=== PATIENT | male | born 1955 | race Hispanic/Latino ===

== ENCOUNTER 2016-03-19 18:47 | Emergency (ER) | payer MEDICARE ==
[2016-03-19] MEDS ORDERED: TYLENOL ONE (19:57)
[2016-03-19] MEDS ORDERED: TYLENOL PO ONE (20:16)
--- NOTE | 2016-03-19 21:35 | Emergency Department Report ---
ED Fall HPI - General Chief Complaint: Fall Stated Complaint: LT SIDE PAIN/FALL Time Seen by Provider: 03/19/16 20:44 Source: patient Mode of arrival: Ambulatory Limitations: No Limitations - History of Present Illness Initial Comments: Patient here reports that at approximately 6 PM today he slipped and fell from ground level. He's completing the patient to the left side of his head at 6 out of 10. He said full was accidental. Denies any loss of consciousness. Denies any dizziness or blurred vision. Denies any nausea or vomiting. He received Tylenol 650 mg upon presentation to the emergency room. Patient has multiple comorbidity to include cardiac stents and he is on Plavix. Denies any neck pain or stiffness. Denies any feeling of dizziness prior to falling. He denies any chest pain or shortness of breath. Denies any visual difficulties. 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 denies: neck pain, numbness, weakness, chest paint, shortness of breath, abdominal pain, hematuria, unable to walk, lightheaded, vertigo, confusion - Related Data Home Medications Medication Instructions Recorded Confirmed Last Taken Clopidogrel [Plavix] 75 mg PO QDAY 12/08/14 07/15/15 1 Day Ago diphenhydrAMINE [Benadryl CAP] 50 mg PO QHS PRN 03/03/15 07/15/15 1 Day Ago Aspirin [Aspirin BABY CHEW TAB] 81 mg PO QDAY 07/15/15 07/15/15 1 Day Ago Previous Rx's Medication Instructions Recorded Last Taken Type Buprenorphine/Naloxone [Suboxone 2 1 each SL QDAY #30 film 12/21/14 1 Day Ago Rx mg-0.5 mg SL Film] traMADol [Ultram] 50 mg PO Q6HR PRN #10 tablet 07/15/15 Unknown Rx Allergies Allergy/AdvReac Type Severity Reaction Status Date / Time codeine Allergy Shortness Verified 03/31/15 12:53 of Breath morphine Allergy Shortness Verified 03/31/15 12:53 of Breath Iodinated Contrast Media - AdvReac Itching Verified 03/31/15 12:53 IV Dye ED Review of Systems ROS: Stated complaint: LT SIDE PAIN/FALL Other details as noted in HPI Comment: All other systems reviewed and negative Constitutional: denies: chills, fever, weakness ENT: denies: congestion Respiratory: no symptoms reported Cardiovascular: denies: chest pain, palpitations, edema, syncope Gastrointestinal: denies: abdominal pain, nausea, vomiting Musculoskeletal: denies: back pain, arthralgia Skin: denies: rash Neurological: headache. denies: weakness, numbness, paresthesias, confusion, abnormal gait, vertigo ED Past Medical Hx - Past Medical History Previous Medical History?: Yes Hx Hypertension: Yes Hx Heart Attack/AMI: Yes Hx GERD: Yes Hx Kidney Stones: Yes Hx Psychiatric Treatment: Yes (DEPRESSION/ BIPOLAR, Anxiety, SI, HI,) Hx COPD: Yes Additional medical history: CAD, SVT, Hypothyroid,. ULCERS - Surgical History Past Surgical History?: Yes Hx Coronary Stent: Yes (x3) Hx Open Heart Surgery: Yes (CABG) - Family History Family history: hypertension - Social History Smoking Status: Never Smoker Substance Use Type: None - Medications Home Medications: Home Medications Medication Instructions Recorded Confirmed Last Taken Type Clopidogrel [Plavix] 75 mg PO QDAY 12/08/14 07/15/15 1 Day Ago History Buprenorphine/Naloxone [Suboxone 2 1 each SL QDAY #30 film 12/21/14 07/15/15 1 Day Ago Rx mg-0.5 mg SL Film] diphenhydrAMINE [Benadryl CAP] 50 mg PO QHS PRN 03/03/15 07/15/15 1 Day Ago History Aspirin [Aspirin BABY CHEW TAB] 81 mg PO QDAY 07/15/15 07/15/15 1 Day Ago History traMADol [Ultram] 50 mg PO Q6HR PRN #10 tablet 07/15/15 Unknown Rx ED Physical Exam - General Limitations: No Limitations General appearance: alert, in no apparent distress - Head Head exam: Present: atraumatic, normocephalic, normal inspection - Expanded Head Exam Expanded Head exam: Present: abrasion (scalp abrasion). Absent: laceration, contusion, hematoma, racoon eyes, bullock's sign, general tenderness, tenderness of temporal artery, CSF rhinorrhea, CSF otorrhea - Eye Eye exam: Present: normal appearance, PERRL, EOMI Pupils: Present: normal accommodation - ENT ENT exam: Present: normal exam, normal orophraynx, mucous membranes moist, TM's normal bilaterally, normal external ear exam - Neck Neck exam: Present: normal inspection, full ROM. Absent: tenderness, meningismus, lymphadenopathy, thyromegaly - Expanded Neck Exam Expanded Neck exam: Absent: tenderness, midline deformity, anterior neck swelling, tracheal deviation - Respiratory Respiratory exam: Present: normal lung sounds bilaterally. Absent: respiratory distress, chest wall tenderness - Cardiovascular Cardiovascular Exam: Present: normal rhythm, tachycardia, normal heart sounds - GI/Abdominal GI/Abdominal exam: Present: soft, normal bowel sounds. Absent: distended, tenderness, guarding, rebound, rigid - Extremities Exam Extremities exam: Present: normal inspection, full ROM, normal capillary refill. Absent: tenderness, pedal edema, joint swelling, calf tenderness - Back Exam Back exam: Present: normal inspection, full ROM. Absent: tenderness, CVA tenderness (R), CVA tenderness (L), muscle spasm, paraspinal tenderness, vertebral tenderness, rash noted - Expanded Neurological Exam Expanded Neurological exam: Absent: innattentive, memory loss-remote event, memory loss- recent event, ataxia, receptive aphasia, expressive aphasia, total aphasia, tremor, protecting the airway Patient oriented to: Present: person, place, time Speech: Present: fluid speech Cranial nerves: EOM's Intact: Normal, Gag Reflex: Normal, Nystagmus: Normal, Facial Sensation: Normal Cerebellar function: Romberg: Normal Upper motor neuron: Pronator Drift: Normal, Sensory Extinction: Normal Sensory exam: Upper Extremity Light Touch: Normal, Upper Extremity Temperature: Normal, UE 2 Point Discrimination: Normal, Lower Extremity Light Touch: Normal, Lower Extremity Temperature: Normal, LE 2 Point Discrimination: Normal Motor strength exam: RUE: 5, LUE: 5, RLE: 5, LLE: 5 DTR: bicep (R): 2+, bicep (L): 2+, tricep (R): 2+, tricep (L): 2+, knee (R): 2+ , knee (L): 2+, ankle (R): 2+, ankle (L): 2+ Best Eye Response (Alida): (4) open spontaneously Best Motor Response (Alida): (6) obeys commands Best Verbal Response (Hyndman): (5) oriented Hyndman Total: 15 - Psychiatric Psychiatric exam: Present: normal affect, normal mood - Skin Skin exam: Present: warm, dry, intact, normal color, abrasion (scalp) ED Course Vital Signs 03/19/16 03/19/16 20:01 22:10 Temperature 98.7 F 98.4 F Pulse Rate 116 H 88 Respiratory 20 20 Rate Blood Pressure 155/103 Blood Pressure 126/80 [Left] O2 Sat by Pulse 97 99 Oximetry - Reevaluation(s) Reevaluation #1: 03/19/16 23:51 Patient received Tylenol 650 mg emergency room for pain and now his pain has gone. ED Medical Decision Making - Lab Data Result diagrams: 03/19/16 21:47 Lab Results 03/19/16 03/19/16 Range/Units 21:47 21:47 WBC 8.9 (4.5-11.0) K/mm3 RBC 5.19 H (3.65-5.03) M/mm3 Hgb 15.2 (11.8-15.2) gm/dl Hct 45.2 (35.5-45.6) % MCV 87 (84-94) fl MCH 29 (28-32) pg MCHC 34 (32-34) % RDW 14.0 (13.2-15.2) % Plt Count 272 (140-440) K/mm3 Lymph % (Auto) 15.9 (13.4-35.0) % [place] % (Auto) 9.4 H (0.0-7.3) % Eos % (Auto) 1.0 (0.0-4.3) % Baso % (Auto) 1.3 (0.0-1.8) % Lymph # 1.4 (1.2-5.4) K/mm3 [place] # 0.8 (0.0-0.8) K/mm3 Eos # 0.1 (0.0-0.4) K/mm3 Baso # 0.1 (0.0-0.1) K/mm3 Seg Neutrophils % 72.4 H (40.0-70.0) % Seg Neutrophils # 6.5 (1.8-7.7) K/mm3 PT 13.1 (12.2-14.9) Sec. INR 1.00 (0.87-1.13) APTT 30.0 (24.2-36.6) Sec. - EKG Data Rate: tachycardia (116) - EKG Data Interpretation: no acute changes - Radiology Data Radiology results: report reviewed CT scan of the brain without contrast reveals there is no CT evidence of intracranial hemorrhage or edema or shift or infarct or distinct acute finding on this noncontrast scan. Mild cerebral atrophy - Medical Decision Making ED course: Patient status post fall with head injury and complains of headache. Patient is neurologically intact. Decision was made to do CT scan because patient is on blood thinner. CT scan results revealed no acute findings. Lab results within normal limits. I discussed this with patient and he voiced understanding. Abrasion to scalp cleansed with normal saline and Neosporin ointment placed to side. Tetanus vaccine is up-to-date per patient. Patient discharged home with prescription for Tylenol and to follow-up with his primary care physician tomorrow. Critical care attestation.: If time is entered above; I have spent that time in minutes in the direct care of this critically ill patient, excluding procedure time. ED Disposition Clinical Impression: Minor head injury without loss of consciousness Qualifiers: Encounter type: initial encounter Qualified Code(s): S09.90XA - Unspecified injury of head, initial encounter Scalp abrasion Qualifiers: Encounter type: initial encounter Qualified Code(s): S00.01XA - Abrasion of scalp, initial encounter Post-traumatic headache, not intractable Qualifiers: Headache chronicity pattern: acute headache Qualified Code(s): G44.319 - Acute post-traumatic headache, not intractable Disposition: DISCHARGED TO HOME OR SELFCARE Is pt being admited?: No Does the pt Need Aspirin: No Condition: Stable Instructions: Minor Head Injury (ED), Acute Headache (ED), Abrasion (ED) Additional Instructions: Please refer to discharge instruction paperwork on minor head injury. Referrals: PRIMARY MD DONALD [Primary Care Provider] - 03/19/16 Forms: Work/School Release Form(ED)
[2016-03-19 22:24] LABS: Basophils % (Auto) 1.3 % (0.0-1.8); Hematocrit 45.2 % (35.5-45.6); Hemoglobin 15.2 gm/dl (11.8-15.2); Mean Corpuscular HGB Conc 34 % (32-34); Mean Corpuscular Hemoglobin 29 pg (28-32); Mean Corpuscular Volume 87 fl (84-94); Platelet Count 272 K/mm3 (140-440); Red Blood Count 5.19 M/mm3 (3.65-5.03); White Blood Count 8.9 K/mm3 (4.5-11.0)
--- NOTE | 2016-03-19 22:42 | Cat Scan Report ---
FINAL REPORT PROCEDURE: CT HEAD/BRAIN WO CON TECHNIQUE: Computerized tomography of the head was performed without contrast material. HISTORY: Head trauma. Head injury on blood thinner. COMPARISON: No prior studies are available for comparison. FINDINGS: Skull and scalp: Normal. Paranasal sinuses: Normal. Ventricles and subarachnoid spaces: There is mild cerebral atrophy. Cerebrum: No evidence of hemorrhage, acute infarction or mass . Cerebellum and brainstem: No evidence of hemorrhage, acute infarction or mass. Vasculature: Normal. Comments: Slightly prominent CSF space in the midline of the posterior fossa posteriorly is likely within the range of normal variation. IMPRESSION: 1. There is no CT evidence of intracranial hemorrhage or edema or shift or infarct or distinct acute finding on this noncontrast scan. 2. Mild cerebral atrophy.
[2016-03-19] MEDS ORDERED: TRIPLE ANTIBIOTIC TP ONE ×2 (23:36→23:38)
[2016-03-20 00:38] VITALS: BP 132/86
== END 2016-03-20 00:35 | disposition home or self-care (01) ==
LOC: ED 18:47
DX: S09.90XA Unspecified injury of head, initial encounter (principal); S00.01XA Abrasion of scalp, initial encounter; G44.319 Acute post-traumatic headache, not intractable; I10 Essential (primary) hypertension; I25.2 Old myocardial infarction; K21.9 Gastro-esophageal reflux disease without esophagitis; F31.9 Bipolar disorder, unspecified; J44.9 Chronic obstructive pulmonary disease, unspecified; I25.810 Atherosclerosis of coronary artery bypass graft(s) without angina pectoris; E03.9 Hypothyroidism, unspecified; W01.0XXA Fall on same level from slipping, tripping and stumbling without subsequent striking against object, initial encounter; Y93.9 Activity, unspecified; Y92.9 Unspecified place or not applicable; Y99.9 Unspecified external cause status
CPT/HCPCS: 36415; 70450; 85025; 85610; 85730; 93005; 93010; A6250

== ENCOUNTER 2016-06-11 09:18 | Emergency (ER) | payer MEDICARE ==
--- NOTE | 2016-06-11 10:23 | Emergency Department Report ---
Entered by CELINA DELEON, acting as scribe for SONIA KENNY NP. Chief Complaint: Animal Bite Stated Complaint: SNAKE BITE/LEFT THUMB Time Seen by Provider: 06/11/16 09:30 - HPI History of Present Illness: 60 y/o male presents with left hand pain after a snake bite that occurred 30 minutes ago. Pt notes the snake was 1 ft long and light in color. 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 1010 reassessed. no change in condition. - ROS Review of Systems: as noted in HPI. - Exam Vital Signs: Vital Signs 06/11/16 09:24 Temperature 99.4 F Pulse Rate 139 H Respiratory 22 Rate Blood Pressure 172/114 O2 Sat by Pulse 100 Oximetry Physical Exam: as noted in HPI. MSE screening note: Focused history and physical exam performed. Due to findings the following was ordered: ED Disposition for MSE Condition: Stable This documentation as recorded by the scribe,CELINA DELEON,accurately reflects the service I personally performed and the decisions made by me,SONIA KENNY NP.
[2016-06-11] MEDS ORDERED: NACL 0.9% 1000 ML 1,000 ML IV ONE (10:43)
--- NOTE | 2016-06-11 10:43 | Emergency Department Report ---
HPI - General Chief Complaint: Animal Bite Time Seen by Provider: 06/11/16 10:36 - HPI HPI: 60-year-old male who presents to the emergency department by EMS from [place], where he is being seen for suicidal ideations, with the complaint of a snake bite to the left thumb. The patient was leaning down to tie his shoes while outside this morning around 8:30 AM, about 2 hours ago, when he saw a small snake bite him on the base of the left thumb. There are too small puncture erwin and the patient has been having some pain to the thumb and says it has been "twisting." He says that the snake was about 9-10 inches in length and it was brown with some white spots. He has a past medical history of COPD, coronary artery disease with OR, hypertension, depression, bipolar disorder, coronary artery disease, SVT and some substance abuse history with pain pills. ED Past Medical Hx - Past Medical History Previous Medical History?: Yes Hx Hypertension: Yes Hx Heart Attack/AMI: Yes Hx GERD: Yes Hx Kidney Stones: Yes Hx Psychiatric Treatment: Yes (DEPRESSION/ BIPOLAR, Anxiety, SI, HI,) Hx COPD: Yes Additional medical history: CAD, SVT, Hypothyroid,. ULCERS - Surgical History Past Surgical History?: Yes Hx Coronary Stent: Yes (x3) Hx Open Heart Surgery: Yes (CABG) - Social History Smoking Status: Never Smoker Substance Use Type: Prescribed - Medications Home Medications: Home Medications Medication Instructions Recorded Confirmed Last Taken Type Clopidogrel [Plavix] 75 mg PO QDAY 12/08/14 06/11/16 06/11/16 06:00 History diphenhydrAMINE [Benadryl CAP] 50 mg PO QHS PRN 03/03/15 06/11/16 05/29/16 History Aspirin [Aspirin BABY CHEW TAB] 81 mg PO QDAY 07/15/15 06/11/16 06/11/16 06:00 History Amoxicillin/K Clav Tab [Augmentin 1 each PO Q12HR #14 tablet 06/11/16 Unknown Rx 500 MG TAB] Quetiapine Fumarate [SEROquel XR] 300 mg PO QHS 06/11/16 06/11/16 06/10/16 History ED Review of Systems ROS: Stated complaint: SNAKE BITE/LEFT THUMB Other details as noted in HPI Comment: All other systems reviewed and negative Constitutional: denies: chills, fever Eyes: denies: eye pain, eye discharge, vision change ENT: denies: ear pain, throat pain Respiratory: denies: cough, shortness of breath, wheezing Cardiovascular: denies: chest pain, palpitations Gastrointestinal: denies: abdominal pain, nausea, diarrhea Genitourinary: denies: urgency, dysuria Musculoskeletal: arthralgia. denies: back pain Skin: lesions. denies: pruritus Neurological: denies: headache, weakness, paresthesias Physical Exam - Physical Exam Vital Signs: Vital Signs 06/11/16 09:24 Temperature 99.4 F Pulse Rate 139 H Respiratory 22 Rate Blood Pressure 172/114 O2 Sat by Pulse 100 Oximetry Physical Exam: GENERAL: The patient is well-developed well-nourished. HEENT: Normocephalic. Atraumatic. Extraocular motions are intact. Patient has moist mucous membranes. Pupils equal reactive to light laterally. NECK: Supple. Trachea is midline. CHEST/LUNGS: Clear to auscultation. There is no respiratory distress noted. HEART/CARDIOVASCULAR: Regular. There is mild tachycardia. There is no gallop rub or murmur. ABDOMEN: Abdomen is soft, nontender. Patient has normal bowel sounds. There is no abdominal distention. SKIN: There are 2 very small puncture wounds to the left dorsal thenar eminence. No surrounding erythema, no bleeding, weeping or drainage. NEURO: The patient is awake, alert, and oriented. The patient is cooperative. The patient has no focal neurologic deficits. The patient has normal speech. MUSCULOSKELETAL: There is some mild tenderness to palpation to the left thumb where the patient had the alleged snakebite but no obvious deformity other than the 2 small puncture wounds. There is no limitation range of motion. Radial pulses +2 over 4 bilaterally. Cap refill less than 2 seconds. Local Superintendent strength 5 out of 5 bilaterally. ED Course Vital Signs 06/11/16 09:24 Temperature 99.4 F Pulse Rate 139 H Respiratory 22 Rate Blood Pressure 172/114 O2 Sat by Pulse 100 Oximetry ED Medical Decision Making - Lab Data Result diagrams: 06/11/16 10:45 06/11/16 10:45 - Radiology Data Radiology results: image reviewed interpreted by me: X-ray of the left hand does not show any fracture, dislocation or foreign body or any acute process. - Medical Decision Making 52-year-old male presents with the complaint that a small snake bit him on the left thumb. There are too small punctate abrasion seen but no signs of infection. There is mild tenderness to palpation but no obvious deformity. Full range of motion and full smt technician strength 5 out of 5 bilaterally. Cap refill less than 2 seconds. Radial pulses +2 over 4 bilaterally. Patient's labs are unremarkable. There is no leukocytosis, no coagulopathy, no electrolyte abnormalities. The patient's description of the snake does not appear to be consistent with any type of poisonous snake and there does not appear to be any significant envenomation. An x-ray was done that does not show any fracture, dislocation or any acute process or any foreign body. Patient did have some mild tachycardia when he first arrived but it came down to a normal level prior to discharge. Patient has stable vitals including being afebrile. For all these reasons he appears safe for discharge home at this time but I discussed with him signs of infection or other reasons for return to the emergency department. Critical Care Time: No Critical care attestation.: If time is entered above; I have spent that time in minutes in the direct care of this critically ill patient, excluding procedure time. ED Disposition Clinical Impression: Snake bite Qualifiers: Encounter type: initial encounter Injury intent: accidental or unintentional Qualified Code(s): T63.001A - Toxic effect of unspecified snake venom, accidental (unintentional), initial encounter Disposition: DISCHARGED TO HOME OR SELFCARE Is pt being admited?: No Condition: Good Instructions: Snake Bite (ED) Additional Instructions: please follow-up with a primary care doctor in the next few days. Return to the emergency department with any worsening of your symptoms or any acute distress. Please keep an eye out for any swelling, redness or discharge of pus from the bite wounds. Prescriptions: Amoxicillin/K Clav Tab [Augmentin 500 MG TAB] 1 each PO Q12HR #14 tablet Referrals: PRIMARY MD DONALD [Primary Care Provider] - 3-5 Days CHRIS AGUILA MD [Staff Physician] - 3-5 Days [facility] [Outside] - 3-5 Days Time of Disposition: 13:32
[2016-06-11 11:02] LABS: Basophils % (Auto) 2.1 % (0.0-1.8); Eosinophils % (Auto) 1.1 % (0.0-4.3); Hematocrit 41.4 % (35.5-45.6); Hemoglobin 13.8 gm/dl (11.8-15.2); Mean Corpuscular HGB Conc 33 % (32-34); Mean Corpuscular Hemoglobin 30 pg (28-32); Mean Corpuscular Volume 90 fl (84-94); Platelet Count 281 K/mm3 (140-440); Red Blood Count 4.61 M/mm3 (3.65-5.03); Red Cell Distribution Width 15.4 % (13.2-15.2); White Blood Count 7.6 K/mm3 (4.5-11.0)
[2016-06-11 11:12] LABS: INR 0.94 (0.87-1.13); Partial Thromboplastin Time 26.9 Sec. (24.2-36.6)
[2016-06-11 11:18] LABS: Alanine Aminotransferase 16 units/L (7-56); Albumin 3.8 g/dL (3.9-5); Albumin/Globulin Ratio 1.7 %; Alkaline Phosphatase 45 units/L (35-129); Anion Gap 16 mmol/L; Bilirubin,Total 0.4 mg/dL (0.1-1.2); Blood Urea Nitrogen 9 mg/dL (9-20); Calcium 8.6 mg/dL (8.4-10.2); Carbon Dioxide 23 mmol/L (22-30); Chloride 105.4 mmol/L (98-107); Glucose 103 mg/dL (75-100); Potassium 3.7 mmol/L (3.6-5.0); Sodium 141 mmol/L (137-145)
[2016-06-11] MEDS ORDERED: TENIVAC IM NR (12:00)
[2016-06-11] MEDS ORDERED: TENIVAC IM ONE (12:00)
[2016-06-11] MEDS ORDERED: NORMODYNE IV ONE (12:07)
[2016-06-11] MEDS ORDERED: TORADOL IV ONE (12:07)
--- NOTE | 2016-06-11 12:11 | XRay Report ---
LEFT HAND, 3 views: History: Left hand pain, snake bite on. The bony architecture is intact. Bony alignment is normal. No soft tissue abnormalities are seen. The joint spaces appear preserved. IMPRESSION: Unremarkable left hand.
[2016-06-11] MEDS ORDERED: NACL 0.9% 1000 ML 1,000 ML IV SCH (13:00)
[2016-06-11 13:16] VITALS: BP 122/74
== END 2016-06-11 13:45 | disposition home or self-care (01) ==
LOC: ED 09:18
DX: T63.001A Toxic effect of unspecified snake venom, accidental (unintentional), initial encounter (principal); I10 Essential (primary) hypertension; I25.2 Old myocardial infarction; K21.9 Gastro-esophageal reflux disease without esophagitis; F31.9 Bipolar disorder, unspecified; F41.9 Anxiety disorder, unspecified; J44.9 Chronic obstructive pulmonary disease, unspecified; Z95.1 Presence of aortocoronary bypass graft; Y92.89 Other specified places as the place of occurrence of the external cause
CPT/HCPCS: 36415; 73130; 80053; 82550; 85025; 85610; 85730; 90471; 96361; 96374; 99284; J1885; J7030; 90714

== ENCOUNTER 2016-06-28 09:25 | Emergency (ER) | payer MEDICARE ==
--- NOTE | 2016-06-28 10:53 | XRay Report ---
Chest 2 views: Compared to 02/02/15. History: Productive cough and chills. Findings: Normal cardiomediastinal silhouette. Trachea is midline. No consolidation, pneumothorax or pleural effusion. Impression: No acute cardiopulmonary findings. The
[2016-06-28 11:04] LABS: Basophils % (Auto) 0.9 % (0.0-1.8); Eosinophils % (Auto) 1.3 % (0.0-4.3); Hematocrit 43.8 % (35.5-45.6); Hemoglobin 14.7 gm/dl (11.8-15.2); Mean Corpuscular HGB Conc 34 % (32-34); Mean Corpuscular Hemoglobin 30 pg (28-32); Mean Corpuscular Volume 90 fl (84-94); Platelet Count 236 K/mm3 (140-440); Red Blood Count 4.88 M/mm3 (3.65-5.03); Red Cell Distribution Width 15.4 % (13.2-15.2)
[2016-06-28 11:11] LABS: Anion Gap 22 mmol/L; Blood Urea Nitrogen 14 mg/dL (9-20); Calcium 9.1 mg/dL (8.4-10.2); Carbon Dioxide 20 mmol/L (22-30); Chloride 99.9 mmol/L (98-107); Glucose 112 mg/dL (75-100); Potassium 4.4 mmol/L (3.6-5.0); Sodium 137 mmol/L (137-145)
--- NOTE | 2016-06-28 16:07 | Emergency Department Report ---
ED General Adult HPI - General Chief complaint: Chest Pain Stated complaint: GUILHERME Time Seen by Provider: 06/28/16 15:52 Source: patient, RN notes reviewed Mode of arrival: Ambulatory Limitations: No Limitations - History of Present Illness Initial comments: 60-year-old male presents to the emergency department complaining of cold symptoms and cough. Patient states he has been feeling bad for the past 2 days. Last night he began having cough productive of brown sputum. Patient reports having some difficulty breathing. He also reports chills, but denies fever. Patient is denying any chest pain, although the triage note reports chest pain. There are no other complaints. -: Gradual, days(s) (2) Severity scale (0 -10): 0 Consistency: constant Improves with: none Worsens with: none Associated Symptoms: cough, shortness of breath Treatments Prior to Arrival: none - Related Data Home Medications Medication Instructions Recorded Confirmed Last Taken Clopidogrel [Plavix] 75 mg PO QDAY 12/08/14 06/11/16 06/11/16 06:00 diphenhydrAMINE [Benadryl CAP] 50 mg PO QHS PRN 03/03/15 06/11/16 05/29/16 Aspirin [Aspirin BABY CHEW TAB] 81 mg PO QDAY 07/15/15 06/11/16 06/11/16 06:00 Quetiapine Fumarate [SEROquel XR] 300 mg PO QHS 06/11/16 06/11/16 06/10/16 Previous Rx's Medication Instructions Recorded Last Taken Type Amoxicillin/K Clav Tab [Augmentin 1 each PO Q12HR #14 tablet 06/11/16 Unknown Rx 500 MG TAB] Benzonatate [Tessalon Perles] 100 mg PO Q8HR #30 capsule 06/28/16 Unknown Rx Levofloxacin [Levaquin TAB] 500 mg PO QDAY #7 tablet 06/28/16 Unknown Rx Allergies Allergy/AdvReac Type Severity Reaction Status Date / Time codeine Allergy Shortness Verified 03/31/15 12:53 of Breath morphine Allergy Shortness Verified 03/31/15 12:53 of Breath Iodinated Contrast Media - AdvReac Itching Verified 03/31/15 12:53 IV Dye ED Review of Systems ROS: Stated complaint: CHEST PAIN Other details as noted in HPI Comment: All other systems reviewed and negative Constitutional: chills Respiratory: cough, shortness of breath ED Past Medical Hx - Past Medical History Previous Medical History?: Yes Hx Hypertension: Yes Hx Heart Attack/AMI: Yes Hx GERD: Yes Hx Kidney Stones: Yes Hx Psychiatric Treatment: Yes (DEPRESSION/ BIPOLAR, Anxiety, SI, HI,) Hx COPD: Yes Additional medical history: CAD, SVT, Hypothyroid,. ULCERS - Surgical History Past Surgical History?: Yes Hx Coronary Stent: Yes (x3) Hx Open Heart Surgery: Yes (CABG) - Family History Family history: no significant - Social History Smoking Status: Never Smoker Substance Use Type: None - Medications Home Medications: Home Medications Medication Instructions Recorded Confirmed Last Taken Type Clopidogrel [Plavix] 75 mg PO QDAY 12/08/14 06/11/16 06/11/16 06:00 History diphenhydrAMINE [Benadryl CAP] 50 mg PO QHS PRN 03/03/15 06/11/16 05/29/16 History Aspirin [Aspirin BABY CHEW TAB] 81 mg PO QDAY 07/15/15 06/11/16 06/11/16 06:00 History Amoxicillin/K Clav Tab [Augmentin 1 each PO Q12HR #14 tablet 06/11/16 Unknown Rx 500 MG TAB] Quetiapine Fumarate [SEROquel XR] 300 mg PO QHS 06/11/16 06/11/16 06/10/16 History Benzonatate [Tessalon Perles] 100 mg PO Q8HR #30 capsule 06/28/16 Unknown Rx Levofloxacin [Levaquin TAB] 500 mg PO QDAY #7 tablet 06/28/16 Unknown Rx ED Physical Exam - General Limitations: No Limitations General appearance: alert, in no apparent distress - Head Head exam: Present: atraumatic, normocephalic - Eye Eye exam: Present: normal appearance, PERRL, EOMI - ENT ENT exam: Present: normal exam, normal orophraynx, mucous membranes moist - Neck Neck exam: Present: normal inspection, full ROM. Absent: tenderness - Respiratory Respiratory exam: Present: normal lung sounds bilaterally. Absent: respiratory distress - Cardiovascular Cardiovascular Exam: Present: regular rate, normal rhythm, normal heart sounds - GI/Abdominal GI/Abdominal exam: Present: soft, normal bowel sounds. Absent: distended, tenderness - Extremities Exam Extremities exam: Present: normal inspection, full ROM. Absent: tenderness - Back Exam Back exam: Present: normal inspection, full ROM. Absent: tenderness - Neurological Exam Neurological exam: Present: alert, oriented X3. Absent: motor sensory deficit - Skin Skin exam: Present: warm, dry, intact ED Course Vital Signs 06/28/16 06/28/16 06/28/16 09:55 14:24 14:30 Temperature 98.7 F Pulse Rate 129 H Respiratory 18 Rate Blood Pressure 141/98 116/94 O2 Sat by Pulse 98 98 97 Oximetry 06/28/16 15:00 Temperature Pulse Rate Respiratory Rate Blood Pressure 148/95 O2 Sat by Pulse 97 Oximetry ED Medical Decision Making - Lab Data Result diagrams: 06/28/16 10:06 06/28/16 10:06 - EKG Data -: EKG Interpreted by Me EKG shows normal: sinus rhythm, axis, intervals, QRS complexes, ST-T waves Rate: tachycardia - EKG Data When compared to previous EKG there are: previous EKG unavailable Interpretation: normal EKG - Radiology Data Radiology results: image reviewed interpreted by me: Chest x-ray shows no acute cardiopulmonary abnormality. - Medical Decision Making Lab and imaging results reviewed and discussed with the patient. His heart rate has improved since first arrival. Patient will be discharged home at this time on oral anti-biotics to follow up with his primary care physician. - Differential Diagnosis pneumonia, bronchitis, COPD exacerbation Critical care attestation.: If time is entered above; I have spent that time in minutes in the direct care of this critically ill patient, excluding procedure time. ED Disposition Clinical Impression: COPD exacerbation Disposition: DISCHARGED TO HOME OR SELFCARE Is pt being admited?: No Condition: Stable Instructions: Chronic Obstructive Pulmonary Disease (ED) Prescriptions: Benzonatate [Tessalon Perles] 100 mg PO Q8HR #30 capsule Levofloxacin [Levaquin TAB] 500 mg PO QDAY #7 tablet Referrals: PRIMARY CARE, [Primary Care Provider] - 3-5 Days Time of Disposition: 16:08
[2016-06-28 16:14] VITALS: BP 150/87
== END 2016-06-28 16:37 | disposition home or self-care (01) ==
LOC: ED 09:25
DX: J44.1 Chronic obstructive pulmonary disease with (acute) exacerbation (principal); I10 Essential (primary) hypertension; I25.2 Old myocardial infarction; K21.9 Gastro-esophageal reflux disease without esophagitis; F32.9 Major depressive disorder, single episode, unspecified; F41.9 Anxiety disorder, unspecified; R45.851 Suicidal ideations; E03.9 Hypothyroidism, unspecified; Z95.1 Presence of aortocoronary bypass graft; Z79.82 Long term (current) use of aspirin; Z88.8 Allergy status to other drugs, medicaments and biological substances
CPT/HCPCS: 36415; 71020; 80048; 84484; 85025; 93005; 93010

== ENCOUNTER 2016-07-19 11:02 | Emergency (ER) | payer MEDICARE ==
[2016-07-19] MEDS ORDERED: NACL 0.9% 1000 ML 1,000 ML IV ONE (11:40)
[2016-07-19] MEDS ORDERED: ZOFRAN IV ONE (11:40)
[2016-07-19] MEDS ORDERED: TORADOL IV ONE (11:40)
--- NOTE | 2016-07-19 11:43 | Emergency Department Report ---
ED Abdominal Pain HPI - General Chief Complaint: Abdominal Pain Stated Complaint: LT SIDE PAIN/VOMITING Time Seen by Provider: 07/19/16 11:30 Source: patient Mode of arrival: Ambulatory Limitations: No Limitations - History of Present Illness MD Complaint: flank pain -: Sudden Location: L flank Radiation: LUQ Severity: moderate Severity scale (0 -10): 5 Quality: stabbing Consistency: constant Improves With: nothing Worsens With: nothing Associated Symptoms: nausea, vomiting. denies: diarrhea, fever, chills, constipation, dysuria, hematemesis, hematochezia - Related Data Home Medications Medication Instructions Recorded Confirmed Last Taken Clopidogrel [Plavix] 75 mg PO QDAY 12/08/14 06/11/16 06/11/16 06:00 diphenhydrAMINE [Benadryl CAP] 50 mg PO QHS PRN 03/03/15 06/11/16 05/29/16 Aspirin [Aspirin BABY CHEW TAB] 81 mg PO QDAY 07/15/15 06/11/16 06/11/16 06:00 Quetiapine Fumarate [SEROquel XR] 300 mg PO QHS 06/11/16 06/11/16 06/10/16 Previous Rx's Medication Instructions Recorded Last Taken Type Amoxicillin/K Clav Tab [Augmentin 1 each PO Q12HR #14 tablet 06/11/16 Unknown Rx 500 MG TAB] Benzonatate [Tessalon Perles] 100 mg PO Q8HR #30 capsule 06/28/16 Unknown Rx Levofloxacin [Levaquin TAB] 500 mg PO QDAY #7 tablet 06/28/16 Unknown Rx Allergies Allergy/AdvReac Type Severity Reaction Status Date / Time codeine Allergy Shortness Verified 03/31/15 12:53 of Breath morphine Allergy Shortness Verified 03/31/15 12:53 of Breath Iodinated Contrast Media - AdvReac Itching Verified 03/31/15 12:53 IV Dye ED Review of Systems ROS: Stated complaint: LT SIDE PAIN/VOMITING Other details as noted in HPI Comment: All other systems reviewed and negative ED Past Medical Hx - Past Medical History Hx Hypertension: Yes Hx Heart Attack/AMI: Yes Hx GERD: Yes Hx Kidney Stones: Yes Hx Psychiatric Treatment: Yes (DEPRESSION/ BIPOLAR, Anxiety, SI, HI,) Hx COPD: Yes Additional medical history: CAD, SVT, Hypothyroid,. ULCERS - Surgical History Hx Coronary Stent: Yes (x3) Hx Open Heart Surgery: Yes (CABG) - Social History Smoking Status: Never Smoker Substance Use Type: None - Medications Home Medications: Home Medications Medication Instructions Recorded Confirmed Last Taken Type Clopidogrel [Plavix] 75 mg PO QDAY 12/08/14 06/11/16 06/11/16 06:00 History diphenhydrAMINE [Benadryl CAP] 50 mg PO QHS PRN 03/03/15 06/11/16 05/29/16 History Aspirin [Aspirin BABY CHEW TAB] 81 mg PO QDAY 07/15/15 06/11/16 06/11/16 06:00 History Amoxicillin/K Clav Tab [Augmentin 1 each PO Q12HR #14 tablet 06/11/16 Unknown Rx 500 MG TAB] Quetiapine Fumarate [SEROquel XR] 300 mg PO QHS 06/11/16 06/11/16 06/10/16 History Benzonatate [Tessalon Perles] 100 mg PO Q8HR #30 capsule 06/28/16 Unknown Rx Levofloxacin [Levaquin TAB] 500 mg PO QDAY #7 tablet 06/28/16 Unknown Rx ED Physical Exam - General Limitations: No Limitations General appearance: alert, in no apparent distress - Head Head exam: Present: atraumatic, normocephalic - Eye Eye exam: Present: normal appearance - ENT ENT exam: Present: mucous membranes moist - Neck Neck exam: Present: normal inspection - Respiratory Respiratory exam: Present: normal lung sounds bilaterally. Absent: respiratory distress - Cardiovascular Cardiovascular Exam: Present: regular rate, normal rhythm. Absent: systolic murmur, diastolic murmur, rubs, gallop - GI/Abdominal GI/Abdominal exam: Present: soft, normal bowel sounds. Absent: distended, tenderness, guarding, rebound - Rectal Rectal exam: Present: deferred - Extremities Exam Extremities exam: Present: normal inspection - Back Exam Back exam: Present: normal inspection - Neurological Exam Neurological exam: Present: alert, oriented X3 - Psychiatric Psychiatric exam: Present: normal affect, normal mood - Skin Skin exam: Present: warm, dry, intact, normal color. Absent: rash ED Course Vital Signs 07/19/16 07/19/16 07/19/16 11:13 11:30 11:32 Temperature 98.3 F Pulse Rate 103 H Respiratory 20 Rate Blood Pressure 150/104 Blood Pressure [Left] O2 Sat by Pulse 99 96 92 Oximetry 07/19/16 07/19/16 07/19/16 11:34 11:36 11:38 Temperature Pulse Rate Respiratory Rate Blood Pressure Blood Pressure [Left] O2 Sat by Pulse 97 97 99 Oximetry 07/19/16 07/19/16 07/19/16 11:40 11:42 11:44 Temperature Pulse Rate 103 H 93 H Respiratory 19 15 Rate Blood Pressure Blood Pressure [Left] O2 Sat by Pulse 99 98 97 Oximetry 07/19/16 07/19/16 07/19/16 11:46 11:48 11:50 Temperature Pulse Rate 96 H 89 98 H Respiratory 12 16 18 Rate Blood Pressure Blood Pressure [Left] O2 Sat by Pulse 100 99 97 Oximetry 07/19/16 07/19/16 07/19/16 11:52 11:54 11:56 Temperature Pulse Rate 100 H 96 H 100 H Respiratory 19 17 22 Rate Blood Pressure Blood Pressure [Left] O2 Sat by Pulse 98 97 98 Oximetry 07/19/16 07/19/16 07/19/16 11:58 12:00 12:02 Temperature Pulse Rate 99 H 104 H 99 H Respiratory 13 14 17 Rate Blood Pressure Blood Pressure [Left] O2 Sat by Pulse 98 97 99 Oximetry 07/19/16 07/19/16 07/19/16 12:04 12:06 12:08 Temperature Pulse Rate 117 H 110 H 102 H Respiratory 17 19 21 Rate Blood Pressure Blood Pressure [Left] O2 Sat by Pulse 98 98 98 Oximetry 07/19/16 07/19/16 07/19/16 12:10 12:12 12:14 Temperature Pulse Rate 96 H 97 H 96 H Respiratory 14 16 16 Rate Blood Pressure Blood Pressure [Left] O2 Sat by Pulse 98 99 98 Oximetry 07/19/16 07/19/16 07/19/16 12:16 12:18 12:20 Temperature Pulse Rate 105 H 96 H 98 H Respiratory 15 18 15 Rate Blood Pressure Blood Pressure [Left] O2 Sat by Pulse 98 98 98 Oximetry 07/19/16 07/19/16 07/19/16 12:22 12:24 12:26 Temperature Pulse Rate 95 H 95 H 97 H Respiratory 11 L 19 19 Rate Blood Pressure Blood Pressure [Left] O2 Sat by Pulse 95 99 99 Oximetry 07/19/16 07/19/1617 12:28 12:30 12:32 Temperature Pulse Rate 99 H 95 H 96 H Respiratory 14 19 11 L Rate Blood Pressure Blood Pressure [Left] O2 Sat by Pulse 98 98 97 Oximetry 07/19/16 07/19/16 07/19/16 12:34 12:36 12:38 Temperature Pulse Rate 99 H 102 H 100 H Respiratory 18 16 16 Rate Blood Pressure Blood Pressure [Left] O2 Sat by Pulse 98 98 97 Oximetry 07/19/16 07/19/16 07/19/16 12:40 12:42 12:44 Temperature Pulse Rate 101 H 94 H 96 H Respiratory 17 14 16 Rate Blood Pressure Blood Pressure [Left] O2 Sat by Pulse 98 99 98 Oximetry 07/19/16 07/19/16 07/19/16 12:46 12:48 12:50 Temperature Pulse Rate 94 H 94 H 99 H Respiratory 16 14 17 Rate Blood Pressure Blood Pressure [Left] O2 Sat by Pulse 97 97 98 Oximetry 07/19/16 07/19/16 07/19/16 12:52 13:15 14:22 Temperature 98.7 F Pulse Rate 104 H 113 H Respiratory 21 22 Rate Blood Pressure Blood Pressure 149/99 [Left] O2 Sat by Pulse 100 98 Oximetry ED Medical Decision Making - Lab Data Result diagrams: 07/19/16 11:16 07/19/16 11:16 - EKG Data When compared to previous EKG there are: no significant change Interpretation: no acute changes - Radiology Data Radiology results: report reviewed, image reviewed - Medical Decision Making patient doing well, ct abdomen and pelvis negative, reexamination with no abdominal tenderness, tolerating po here in the er, will dc and follow up as needed Critical care attestation.: If time is entered above; I have spent that time in minutes in the direct care of this critically ill patient, excluding procedure time. ED Disposition Clinical Impression: Abdominal pain Disposition: DISCHARGED TO HOME OR SELFCARE Is pt being admited?: No Does the pt Need Aspirin: No Condition: Good Instructions: Acute Abdominal Pain (ED) Referrals: PRIMARY CARE, [Primary Care Provider] - 3-5 Days Time of Disposition: 14:43
[2016-07-19 11:54] LABS: Bilirubin,Urine NEG (Negative); Blood,Urine SM (Negative); Ketones,Urine NEG (Negative); Leukocyte Esterase,Urine NEG (Negative); Mucus,Urine FEW /HPF; Nitrite,Urine NEG (Negative); Protein,Urine <15 mg/dL mg/dL (Negative); Urobilinogen,Urine < 2.0 mg/dL (<2.0)
[2016-07-19 11:54] LABS: Basophils % (Auto) 2.8 % (0.0-1.8); Eosinophils % (Auto) 1.6 % (0.0-4.3); Hematocrit 43.4 % (35.5-45.6); Hemoglobin 14.5 gm/dl (11.8-15.2); Mean Corpuscular HGB Conc 34 % (32-34); Mean Corpuscular Hemoglobin 30 pg (28-32); Mean Corpuscular Volume 91 fl (84-94); Platelet Count 270 K/mm3 (140-440); Red Blood Count 4.79 M/mm3 (3.65-5.03); Red Cell Distribution Width 14.3 % (13.2-15.2); White Blood Count 6.5 K/mm3 (4.5-11.0)
--- NOTE | 2016-07-19 12:01 | Admit Criteria Form ---
Admission Criteria Documentation: ABDOMINAL PAIN Clinical Indications for Admission to Inpatient Care (Place 'X' for any and all applicable criteria): Admission is indicated for ANY ONE of the following(1)(2)(3)(4)(5): [X ]I. Inpatient admission required rather than observation care (Also use Abdominal Pain: Observation Care, as appropriate) because of ANY ONE of the following: [ ]a) Severe pain requiring acute inpatient management [ ]b) Identification of etiology/finding that requires inpatient care (eg, aortic dissection, free air) [ ]c) Absent bowel sounds with complete ileus(6) [ ]d) Suspected toxic megacolon [ ]e) Severe electrolyte abnormalities requiring inpatient care [ ]f) High fever or infection requiring inpatient admission as indicated by ANY ONE of following(7)(8): [ ] i) Appropriate outpatient or observational care antimicrobial treatment unavailable, not effective, or not feasible [ ] ii) Documented bacteremia [ ] iii) Temperature > 104.9 degrees F (oral) [ ] iv) T >103.1 F (oral) or < 96.8 F(rectal) that does not respond to all emergency treatment measures [ ]g) Signs of intestinal obstruction [B] [ ]h) Hemodynamic instability [ ]i) IV fluid to replace significant ongoing losses (greater than 3 L/m2 per day) (12)(13) [ ]j) Percutaneous or open drainage (eg, abscess, biliary tract ) procedures [ ]k) Parenteral nutrition regimen that must be implemented on inpatient basis [X ]l) Other condition,treatment or monitoring requiring inpatient admission. [ ]II. Peritoneal signs present [ ]III. Surgery needed that cannot be performed on an ambulatory basis. [ ]IV. Evaluation requires patient to not eat or drink for extended period ( eg, more than 24 hours). [ ]V. Contraindications and/or Inappropriate clinical situations for Observational Care in patients with abdominal pain, when ANY ONE of the following is required: [ ]a) Thorough evaluation is required to prevent catastrophic events due to delays in diagnosing (e.g.Mesenteric ischemia) 1,3 [ ]b) Patient with severe pathology or with chronic symptoms unlikely to improve in the ED stay (3) [ ]. General contraindications and/or Inappropriate clinical situations for Observational Care in patients with abdominal pain, when ANY ONE of the following is required: [ ]a) Prediction of prolongation of LOS based on ANY ONE of the following may be considered as a contraindication for observational care 2, 3, 4, 5, 6, 7, 8, 9, 10, 11 [ ]i) Age > 65 yrs. [ ]ii) Patient arriving by ambulance [ ]iii) Patient with high acuity [ ]iv) Patient requiring vital sign monitoring [ ]v) Patient on IV medication [ ]b) Systolic blood pressures 180mmHg 3,12 [ ]c) Patient with altered mental status including delirium and other alteration of consciousness, (3) [ ]d) Patient whose discharge disposition will be to a [place] [facility] home or rehabilitation home should not be managed in Emergency Department Observation Unit. CMS rule requires 3 days hospital stay before such placement.3,13 [ ]e) Patient with failure to thrive due to broad array of etiologies 3,16,17 [ ]f) Inability to ambulate 3,14 Extended stay beyond goal length of stay may be needed for(2)(3): [ ]a) Persistent abdominal pain with suspected intra-abdominal process [ ]b) Diagnosed condition requiring continued stay (e.g., pancreatitis, complicated diverticulitis) [ ]c) Surgery (e.g., colectomy) The original [facility] content created by [email or web address] has been revised. The portions of the content which have been revised are identified through the use of italic text or in bold, and [facility] [employer] has neither reviewed nor approved the modified material.All other unmodified content is copyright [facility]. Please see references footnoted in the original [facility] edition 2016
[2016-07-19 12:14] LABS: Alanine Aminotransferase 19 units/L (7-56); Albumin 4.2 g/dL (3.9-5); Albumin/Globulin Ratio 1.4 %; Alkaline Phosphatase 42 units/L (35-129); Anion Gap 17 mmol/L; Blood Urea Nitrogen 18 mg/dL (9-20); Calcium 9.4 mg/dL (8.4-10.2); Carbon Dioxide 23 mmol/L (22-30); Chloride 102.9 mmol/L (98-107); Glucose 106 mg/dL (75-100); Lipase 19 units/L (13-60); Potassium 4.5 mmol/L (3.6-5.0); Sodium 138 mmol/L (137-145); Total Protein 7.2 g/dL (6.3-8.2)
[2016-07-19 13:16] VITALS: BP 149/99
--- NOTE | 2016-07-19 14:37 | Cat Scan Report ---
CT OF THE ABDOMEN AND PELVIS WITHOUT CONTRAST HISTORY: Abdominal pain. TECHNIQUE: Helical CT without contrast. Sagittal and coronal reformatted images. FINDINGS: Within the limits of a noncontrast exam, the abdominal and pelvic viscera are within normal limits. The liver, biliary system, pancreas, spleen, kidneys, adrenal glands and bladder are unremarkable. The bowel loops are normal caliber and wall thickness. Normal appendix. Surgical changes are noted near the GE junction and distal stomach, correlate with history. The aorta is normal caliber. No ascites, bulky adenopathy or inflammatory changes. The lung bases are clear. Normal heart size. No suspicious bony lesion. IMPRESSION: No acute abdominal process is appreciated.
== END 2016-07-19 14:52 | disposition home or self-care (01) ==
LOC: ED 11:02
DX: R10.12 Left upper quadrant pain (principal); R11.2 Nausea with vomiting, unspecified; I10 Essential (primary) hypertension; I25.2 Old myocardial infarction; K21.9 Gastro-esophageal reflux disease without esophagitis; J44.9 Chronic obstructive pulmonary disease, unspecified; I25.10 Atherosclerotic heart disease of native coronary artery without angina pectoris; E03.9 Hypothyroidism, unspecified; Z88.6 Allergy status to analgesic agent; Z91.041 Radiographic dye allergy status; Z79.82 Long term (current) use of aspirin; Z79.02 Long term (current) use of antithrombotics/antiplatelets; Z95.1 Presence of aortocoronary bypass graft
CPT/HCPCS: 36415; 74176; 80053; 81001; 83690; 85025; 93005; 93010; 96361; 96374; 96375; 99284; J1885; J2405; J7030

== ENCOUNTER 2016-09-14 21:36 | Emergency (ER) | payer MEDICARE ==
[2016-09-14 21:45] VITALS: BP 166/106
[2016-09-14 22:31] LABS: Basophils % (Auto) 1.8 % (0.0-1.8); Eosinophils % (Auto) 3.5 % (0.0-4.3); Hemoglobin 13.9 gm/dl (11.8-15.2); Mean Corpuscular HGB Conc 34 % (32-34); Mean Corpuscular Hemoglobin 31 pg (28-32); Mean Corpuscular Volume 91 fl (84-94); Platelet Count 262 K/mm3 (140-440); Red Blood Count 4.49 M/mm3 (3.65-5.03); Red Cell Distribution Width 13.3 % (13.2-15.2); White Blood Count 6.7 K/mm3 (4.5-11.0)
[2016-09-14 22:49] LABS: Alanine Aminotransferase 16 units/L (7-56); Albumin/Globulin Ratio 1.2 %; Alkaline Phosphatase 46 units/L (35-129); Anion Gap 19 mmol/L; BUN/Creatinine Ratio 21.81; Blood Urea Nitrogen 24 mg/dL (9-20); Calcium 9.5 mg/dL (8.4-10.2); Carbon Dioxide 22 mmol/L (22-30); Chloride 102.8 mmol/L (98-107); Glucose 96 mg/dL (75-100); Lipase 12 units/L (13-60); Potassium 3.9 mmol/L (3.6-5.0); Sodium 140 mmol/L (137-145); Total Protein 7.4 g/dL (6.3-8.2)
[2016-09-14 23:39] LABS: Bilirubin,Urine NEG (Negative); Blood,Urine SM (Negative); Ketones,Urine NEG (Negative); Leukocyte Esterase,Urine NEG (Negative); Mucus,Urine 2+ /HPF; Nitrite,Urine NEG (Negative)
== END 2016-09-14 23:00 | disposition left against medical advice (07) ==
LOC: ED 21:36
DX: R52 Pain, unspecified (principal); Z53.21 Procedure and treatment not carried out due to patient leaving prior to being seen by health care provider
CPT/HCPCS: 36415; 80053; 81001; 83690; 85025

== ENCOUNTER 2016-10-08 18:43 | Emergency (ER) | payer MEDICARE ==
[2016-10-08 22:11] LABS: Basophils % (Auto) 1.2 % (0.0-1.8); Eosinophils % (Auto) 2.4 % (0.0-4.3); Hematocrit 41.5 % (35.5-45.6); Hemoglobin 14.4 gm/dl (11.8-15.2); Mean Corpuscular HGB Conc 35 % (32-34); Mean Corpuscular Hemoglobin 31 pg (28-32); Mean Corpuscular Volume 90 fl (84-94); Platelet Count 240 K/mm3 (140-440); Red Blood Count 4.63 M/mm3 (3.65-5.03); Red Cell Distribution Width 13.7 % (13.2-15.2); White Blood Count 6.1 K/mm3 (4.5-11.0)
[2016-10-08 22:19] LABS: Urine Drugs of Abuse Note Disclamer
[2016-10-08 22:28] LABS: Anion Gap 19 mmol/L; BUN/Creatinine Ratio 24.44; Blood Urea Nitrogen 22 mg/dL (9-20); Calcium 9.7 mg/dL (8.4-10.2); Carbon Dioxide 23 mmol/L (22-30); Chloride 103.1 mmol/L (98-107); Glucose 118 mg/dL (75-100); Potassium 4.1 mmol/L (3.6-5.0); Sodium 141 mmol/L (137-145)
[2016-10-08 22:34] LABS: Bilirubin,Urine NEG (Negative); Blood,Urine NEG (Negative); Ketones,Urine NEG (Negative); Leukocyte Esterase,Urine NEG (Negative); Mucus,Urine 3+ /HPF; Nitrite,Urine NEG (Negative)
--- NOTE | 2016-10-09 07:15 | Emergency Department Report ---
ED Psych HPI - General Chief Complaint: Medical Clearance Stated Complaint: MEDICAL CLEARANCE Time Seen by Provider: 10/09/16 07:13 Source: patient Mode of arrival: Ambulatory - History of Present Illness Initial Comments: Patient states that he would like to be stabilized in the hospital at [facility]. He states he ran out of this medicine 4 days ago. He has seen Dr. Zhou before for chronic care last 1 month ago he states. He is not agitated nor hallucinating. He's not had suicidal ideation. He is unclear as to whether he is seeking admission in the line or in the hospital itself. He states that he is on Suboxone maintenance. He has not had this medicine for several days he states. He denies any specific symptoms that I can relate to withdrawal. Complaint: other (anxiety about his psychiatric condition) -: days(s) Associated Psychiatric Symptoms: other History of same: No Quality: intermittent Improves With: medication Worsens With: none Context: not taking psychiatric Associated Symptoms: denies other symptoms - Related Data Home Medications Medication Instructions Recorded Confirmed Last Taken Clopidogrel [Plavix] 75 mg PO QDAY 12/08/14 10/09/16 06/11/16 06:00 Aspirin [Aspirin BABY CHEW TAB] 81 mg PO QDAY 07/15/15 10/09/16 06/11/16 06:00 Quetiapine Fumarate [SEROquel XR] 300 mg PO QHS 06/11/16 10/09/16 06/10/16 Suboxone 8 mg-2 mg SL Film 8 mg PO DAILY 10/09/16 10/09/16 Unknown traZODone 10/09/16 Unknown Allergies Allergy/AdvReac Type Severity Reaction Status Date / Time codeine Allergy Shortness Verified 03/31/15 12:53 of Breath morphine Allergy Shortness Verified 03/31/15 12:53 of Breath Iodinated Contrast Media - AdvReac Itching Verified 03/31/15 12:53 IV Dye ED Review of Systems ROS: Stated complaint: MEDICAL CLEARANCE Other details as noted in HPI Constitutional: denies: chills, fever Eyes: denies: eye pain, eye discharge, vision change ENT: denies: ear pain, throat pain Respiratory: denies: cough, shortness of breath, wheezing Cardiovascular: denies: chest pain, palpitations Endocrine: no symptoms reported Gastrointestinal: denies: abdominal pain, nausea, diarrhea Genitourinary: denies: urgency, dysuria Musculoskeletal: denies: back pain, joint swelling, arthralgia Skin: denies: rash, lesions Neurological: denies: headache, weakness, paresthesias Psychiatric: anxiety. denies: depression, auditory hallucinations, visual hallucinations, homicidal thoughts, suicidal thoughts Hematological/Lymphatic: denies: easy bleeding, easy bruising ED Past Medical Hx - Past Medical History Hx Hypertension: Yes Hx Heart Attack/AMI: Yes (3 stents) Hx GERD: Yes Hx Kidney Stones: Yes Hx Psychiatric Treatment: Yes (DEPRESSION/ BIPOLAR, Anxiety, SI, HI,) Hx COPD: Yes Additional medical history: CAD, SVT, Hypothyroid,. ULCERS - Surgical History Hx Coronary Stent: Yes (x3) Hx Open Heart Surgery: Yes (CABG) - Social History Smoking Status: Never Smoker Substance Use Type: None - Medications Home Medications: Home Medications Medication Instructions Recorded Confirmed Last Taken Type Clopidogrel [Plavix] 75 mg PO QDAY 12/08/14 10/09/16 06/11/16 06:00 History Aspirin [Aspirin BABY CHEW TAB] 81 mg PO QDAY 07/15/15 10/09/16 06/11/16 06:00 History Quetiapine Fumarate [SEROquel XR] 300 mg PO QHS 06/11/16 10/09/16 06/10/16 History Suboxone 8 mg-2 mg SL Film 8 mg PO DAILY 10/09/16 10/09/16 Unknown History traZODone 10/09/16 Unknown History ED Physical Exam - General Limitations: No Limitations General appearance: alert, in no apparent distress - Head Head exam: Present: atraumatic, normocephalic - Eye Eye exam: Present: normal appearance, PERRL, EOMI. Absent: scleral icterus - ENT ENT exam: Present: mucous membranes moist - Neck Neck exam: Present: normal inspection - Respiratory Respiratory exam: Present: normal lung sounds bilaterally. Absent: respiratory distress - Cardiovascular Cardiovascular Exam: Present: regular rate, normal rhythm. Absent: systolic murmur, diastolic murmur, rubs, gallop - GI/Abdominal GI/Abdominal exam: Present: soft, normal bowel sounds. Absent: distended, tenderness, guarding, rebound, rigid - Rectal Rectal exam: Present: deferred - Extremities Exam Extremities exam: Present: normal inspection - Back Exam Back exam: Present: normal inspection - Neurological Exam Neurological exam: Present: alert, oriented X3, CN II-XII intact, normal gait. Absent: motor sensory deficit - Psychiatric Psychiatric exam: Present: normal affect, normal mood - Skin Skin exam: Present: warm, dry, intact, normal color. Absent: rash ED Course Vital Signs 10/08/16 10/09/16 10/09/16 21:02 05:32 05:45 Temperature 98.4 F Pulse Rate 103 H Respiratory 18 Rate Blood Pressure 138/90 111/65 O2 Sat by Pulse 100 100 99 Oximetry 10/09/16 10/09/16 10/09/16 05:52 06:00 06:30 Temperature Pulse Rate 71 Respiratory 16 Rate Blood Pressure 104/60 106/76 O2 Sat by Pulse 100 100 Oximetry 10/09/16 10/09/16 07:00 07:31 Temperature Pulse Rate Respiratory Rate Blood Pressure 103/61 106/56 O2 Sat by Pulse 97 99 Oximetry - Reevaluation(s) Reevaluation #1: I spoke with the mental health counselor. She stated that they were going to make provision for "partial hospitalization" AKA the [place]. I agree with this disposition. 10/09/16 10:27 ED Medical Decision Making - Lab Data Result diagrams: 10/08/16 21:30 10/08/16 21:30 Laboratory Results - last 24 hr 10/08/16 10/08/16 10/08/16 21:30 21:30 21:30 WBC 6.1 RBC 4.63 Hgb 14.4 Hct 41.5 MCV 90 MCH 31 MCHC 35 H RDW 13.7 Plt Count 240 Lymph % (Auto) 20.4 Sharp % (Auto) 8.5 H Eos % (Auto) 2.4 Baso % (Auto) 1.2 Lymph # 1.2 Sharp # 0.5 Eos # 0.1 Baso # 0.1 Seg Neutrophils % 67.5 Seg Neutrophils # 4.1 Sodium 141 Potassium 4.1 Chloride 103.1 Carbon Dioxide 23 Anion Gap 19 BUN 22 H Creatinine 0.9 Estimated GFR > 60 BUN/Creatinine Ratio 24.44 Glucose 118 H Calcium 9.7 Urine Color Urine Turbidity Urine pH Ur Specific [place] Urine Protein Urine Glucose (UA) Urine Ketones Urine Blood Urine Nitrite Urine Bilirubin Urine Urobilinogen Ur Leukocyte Esterase Urine WBC (Auto) Urine RBC (Auto) Urine Mucus Urine Opiates Screen Urine Methadone Screen Ur Barbiturates Screen Ur Phencyclidine Scrn Ur Amphetamines Screen U Benzodiazepines Scrn Urine Cocaine Screen U Marijuana (THC) Screen Drugs of Abuse Note Plasma/Serum Alcohol < 0.01 10/08/16 10/08/16 22:00 22:00 WBC RBC Hgb Hct MCV MCH MCHC RDW Plt Count Lymph % (Auto) Sharp % (Auto) Eos % (Auto) Baso % (Auto) Lymph # Sharp # Eos # Baso # Seg Neutrophils % Seg Neutrophils # Sodium Potassium Chloride Carbon Dioxide Anion Gap BUN Creatinine Estimated GFR BUN/Creatinine Ratio Glucose Calcium Urine Color Milli Urine Turbidity Clear Urine pH 5.0 Ur Specific [place] 1.030 Urine Protein 100 mg/dl Urine Glucose (UA) Neg Urine Ketones Neg Urine Blood Neg Urine Nitrite Neg Urine Bilirubin Neg Urine Urobilinogen 2.0 Ur Leukocyte Esterase Neg Urine WBC (Auto) 5.0 Urine RBC (Auto) 4.0 Urine Mucus 3+ Urine Opiates Screen Presumptive negative Urine Methadone Screen Presumptive negative Ur Barbiturates Screen Presumptive negative Ur Phencyclidine Scrn Presumptive positive Ur Amphetamines Screen Presumptive negative U Benzodiazepines Scrn Presumptive negative Urine Cocaine Screen Presumptive negative U Marijuana (THC) Screen Presumptive negative Drugs of Abuse Note Disclamer Plasma/Serum Alcohol Critical care attestation.: If time is entered above; I have spent that time in minutes in the direct care of this critically ill patient, excluding procedure time. ED Disposition Clinical Impression: Bipolar disorder Qualifiers: Active/Remission status: currently active Current bipolar episode type: manic Current episode severity: moderate Qualified Code(s): F31.12 - Bipolar disorder , current episode manic without psychotic features, moderate Disposition: DC-01 TO HOME OR SELFCARE Is pt being admited?: No Does the pt Need Aspirin: No Condition: Stable Instructions: Bipolar Disorder (ED) Additional Instructions: Further care per anchor providers. Referrals: PRIMARY CARE, [Primary Care Provider] - 3-5 Days Time of Disposition: 10:30
[2016-10-09 11:05] VITALS: BP 100/67
== END 2016-10-09 11:13 | disposition home or self-care (01) ==
LOC: ED 18:43
DX: F31.12 Bipolar disorder, current episode manic without psychotic features, moderate (principal); K21.9 Gastro-esophageal reflux disease without esophagitis; F41.9 Anxiety disorder, unspecified; Z95.818 Presence of other cardiac implants and grafts; I10 Essential (primary) hypertension; Z88.5 Allergy status to narcotic agent; Z88.8 Allergy status to other drugs, medicaments and biological substances; Z79.82 Long term (current) use of aspirin
CPT/HCPCS: 36415; 80048; 80307; 81001; 85025; 99284; G0480; 80320

== ENCOUNTER 2016-12-04 23:36 | Emergency (ER) | payer MEDICARE ==
[2016-12-05 00:48] LABS: Basophils % (Auto) 1.1 % (0.0-1.8); Eosinophils % (Auto) 1.2 % (0.0-4.3); Hematocrit 43.4 % (35.5-45.6); Hemoglobin 14.6 gm/dl (11.8-15.2); Mean Corpuscular HGB Conc 34 % (32-34); Mean Corpuscular Hemoglobin 30 pg (28-32); Mean Corpuscular Volume 90 fl (84-94); Platelet Count 317 K/mm3 (140-440); Red Blood Count 4.82 M/mm3 (3.65-5.03); Red Cell Distribution Width 14.1 % (13.2-15.2); White Blood Count 10.2 K/mm3 (4.5-11.0)
[2016-12-05 01:06] LABS: INR 0.99 (0.87-1.13)
[2016-12-05 01:07] LABS: Partial Thromboplastin Time 30.1 Sec. (24.2-36.6)
[2016-12-05 01:22] LABS: Urine Drugs of Abuse Note Disclamer
[2016-12-05 01:27] LABS: Anion Gap 19 mmol/L; BUN/Creatinine Ratio 23; Blood Urea Nitrogen 21 mg/dL (9-20); Calcium 9.4 mg/dL (8.4-10.2); Carbon Dioxide 25 mmol/L (22-30); Chloride 100.4 mmol/L (98-107); Glucose 109 mg/dL (75-100); Potassium 3.6 mmol/L (3.6-5.0); Sodium 141 mmol/L (137-145)
[2016-12-05 01:37] LABS: Bacteria,Urine 1+ /HPF (Negative); Bilirubin,Urine NEG (Negative); Blood,Urine NEG (Negative); Ketones,Urine NEG (Negative); Leukocyte Esterase,Urine NEG (Negative); Mucus,Urine 2+ /HPF; Nitrite,Urine NEG (Negative)
--- NOTE | 2016-12-05 07:33 | Emergency Department Report ---
ED Psych HPI - General Chief Complaint: Psych Stated Complaint: OUT OF MEDS Time Seen by Provider: 12/05/16 06:25 Source: patient Mode of arrival: Ambulatory Limitations: No Limitations - History of Present Illness Initial Comments: 61-year-old male with a history of bipolar disorder and multiple chronic medical conditions presents to the hospital requesting medication refill. Patient states he was just discharged 3 or 4 days ago from the inpatient psychiatric facility at [facility] for suicidal ideation. Patient states he has been on Suboxone and for the past 3 years and was on methadone for approximately 20 years prior to that. During his inpatient admission Suboxone was not available so patient was restarted on methadone. Patient reports that he does not like methadone and when he was discharged 3-4 days ago he did not receive any methadone or Suboxone. Patient is requesting a refill on all of his medications including Plavix, aspirin, Zoloft, Seroquel, and Suboxone. I'm unclear why patient does not have these medications since he wishes discharged from another facility several days ago. Patient complains of generalized 8/10 body aches nausea and diarrhea. Denies suicidal ideations, homicidal ideations , or hallucinations at this time. - Related Data Home Medications Medication Instructions Recorded Confirmed Last Taken Quetiapine Fumarate [SEROquel XR] 300 mg PO QHS 06/11/16 10/09/16 06/10/16 Suboxone 8 mg-2 mg SL Film 8 mg PO DAILY 10/09/16 10/09/16 Unknown Previous Rx's Medication Instructions Recorded Last Taken Type Aspirin [Aspirin BABY CHEW TAB] 81 mg PO QDAY #30 tab.chew 12/05/16 Unknown Rx Clopidogrel [Plavix] 75 mg PO QDAY #30 tablet 12/05/16 Unknown Rx Loperamide [Imodium] 2 mg PO Q2HR PRN #20 capsule 12/05/16 Unknown Rx Ondansetron [Zofran Odt] 4 mg PO Q8HR PRN #20 tab.rapdis 12/05/16 Unknown Rx Quetiapine Fumarate [Seroquel Xr] 300 mg PO QPM #30 tab.er.24h 12/05/16 Unknown Rx traZODone [Desyrel] 50 mg PO QHS #30 tab 12/05/16 Unknown Rx Allergies Allergy/AdvReac Type Severity Reaction Status Date / Time codeine Allergy Shortness Verified 03/31/15 12:53 of Breath morphine Allergy Shortness Verified 03/31/15 12:53 of Breath Iodinated Contrast- Oral and AdvReac Itching Verified 03/31/15 12:53 IV Dye [Iodinated Contrast Media - IV Dye] ED Review of Systems ROS: Stated complaint: OUT OF MEDS Other details as noted in HPI Comment: All other systems reviewed and negative Other: Constitutional: No fevers chills Eyes: No eye pain visual changes ENT: No ear pain or throat pain Neck: Denies pain Respiratory: Denies cough wheezing shortness of breath Cardiovascular: Denies chest pain, palpitations, syncope GI: As per HPI : Denies dysuria Musculoskeletal: Body Skin: Denies rash, lesions, erythema Neurologic: Denies headache, numbness, weakness Psychiatric: Denies suicidal ideation, hallucinations ED Past Medical Hx - Past Medical History Previous Medical History?: Yes Hx Hypertension: Yes Hx Heart Attack/AMI: Yes (3 stents) Hx GERD: Yes Hx Kidney Stones: Yes Hx Psychiatric Treatment: Yes (DEPRESSION/ BIPOLAR, Anxiety, SI, HI,) Hx COPD: Yes Additional medical history: CAD, SVT, Hypothyroid,. ULCERS - Surgical History Past Surgical History?: Yes Hx Coronary Stent: Yes (x3) Hx Open Heart Surgery: Yes (CABG) Additional Surgical History: Peptic ulcer surgery - Social History Smoking Status: Never Smoker Substance Use Type: None - Medications Home Medications: Home Medications Medication Instructions Recorded Confirmed Last Taken Type Quetiapine Fumarate [SEROquel XR] 300 mg PO QHS 06/11/16 10/09/16 06/10/16 History Suboxone 8 mg-2 mg SL Film 8 mg PO DAILY 10/09/16 10/09/16 Unknown History Aspirin [Aspirin BABY CHEW TAB] 81 mg PO QDAY #30 tab.chew 12/05/16 Unknown Rx Clopidogrel [Plavix] 75 mg PO QDAY #30 tablet 12/05/16 Unknown Rx Loperamide [Imodium] 2 mg PO Q2HR PRN #20 capsule 12/05/16 Unknown Rx Ondansetron [Zofran Odt] 4 mg PO Q8HR PRN #20 tab.rapdis 12/05/16 Unknown Rx Quetiapine Fumarate [Seroquel Xr] 300 mg PO QPM #30 tab.er.24h 10/19/17 Unknown Rx traZODone [Desyrel] 50 mg PO QHS #30 tab 12/05/16 Unknown Rx ED Physical Exam - General Limitations: No Limitations - Other Other exam information: General: No limitations Head exam: Atraumatic, normocephalic Eyes exam: Normal appearance, pupils equal reactive to light, extraocular movements intact ENT: Moist mucous membrane, normal oropharynx Neck exam: Normal inspection, full range of motion, no meningismus nontender Respiratory exam: Clear to auscultation bilateral, no wheezes, rales, crackles Cardiovascular: Normal rate and rhythm, normal heart sounds Abdomen: Soft, nondistended, and nontender, with normal bowel sounds, no rebound, or guarding Extremity: Full range of motion normal inspection no deformity Back: Normal Inspection, full range of motion, no tenderness Neurologic: Alert, oriented x3, cranial nerves intact, no motor or sensory deficit Psychiatric: normal affect, normal mood Skin: Warm, dry, intact ED Course Vital Signs 12/05/16 12/05/16 12/05/16 00:19 03:57 04:33 Temperature 99.0 F Pulse Rate 106 H 95 H Respiratory 20 16 18 Rate Blood Pressure 177/92 117/70 O2 Sat by Pulse 97 98 99 Oximetry - Consultations Consultation #1: 12/05/16 06:45 Mental health consult 12/05/16 11:44 After evaluation by [facility] and she is in agreement patient does not meet criteria for 1013. It was discussed importance of follow-up as outpatient to receive a refill of his Suboxone. His other medications will be prescribed by me as well as medications for symptomatic treatment of diarrhea and vomiting as needed for methadone withdrawal. ED Medical Decision Making - Lab Data Result diagrams: 12/05/16 00:28 12/05/16 00:28 Lab Results 12/05/16 12/05/16 12/05/16 Range/Units 00:28 00:28 00:28 WBC (4.5-11.0) K/mm3 RBC (3.65-5.03) M/mm3 Hgb (11.8-15.2) gm/dl Hct (35.5-45.6) % MCV (84-94) fl MCH (28-32) pg MCHC (32-34) % RDW (13.2-15.2) % Plt Count (140-440) K/mm3 Lymph % (Auto) (13.4-35.0) % [place] % (Auto) (0.0-7.3) % Eos % (Auto) (0.0-4.3) % Baso % (Auto) (0.0-1.8) % Lymph # (1.2-5.4) K/mm3 [place] # (0.0-0.8) K/mm3 Eos # (0.0-0.4) K/mm3 Baso # (0.0-0.1) K/mm3 Seg Neutrophils % (40.0-70.0) % Seg Neutrophils # (1.8-7.7) K/mm3 PT 13.6 (12.2-14.9) Sec. INR 0.99 (0.87-1.13) APTT 30.1 (24.2-36.6) Sec. Sodium 141 (137-145) mmol/L Potassium 3.6 (3.6-5.0) mmol/L Chloride 100.4 (98-107) mmol/L Carbon Dioxide 25 (22-30) mmol/L Anion Gap 19 mmol/L BUN 21 H (9-20) mg/dL Creatinine 0.9 (0.8-1.5) mg/dL Estimated GFR > 60 ml/min BUN/Creatinine Ratio 23 % Glucose 109 H (75-100) mg/dL Calcium 9.4 (8.4-10.2) mg/dL Urine Color (Yellow) Urine Turbidity (Clear) Urine pH (5.0-7.0) Ur Specific [place] (1.003-1.030) Urine Protein (Negative) mg/dL Urine Glucose (UA) (Negative) mg/dL Urine Ketones (Negative) mg/dL Urine Blood (Negative) Urine Nitrite (Negative) Urine Bilirubin (Negative) Urine Urobilinogen (<2.0) mg/dL Ur Leukocyte Esterase (Negative) Urine WBC (Auto) (0.0-6.0) /HPF Urine RBC (Auto) (0.0-6.0) /HPF U Epithel Cells (Auto) (0-13.0) /HPF Urine Bacteria (Auto) (Negative) /HPF Hyaline Casts /LPF Urine Mucus /HPF Urine Opiates Screen Urine Methadone Screen Ur Barbiturates Screen Ur Phencyclidine Scrn Ur Amphetamines Screen U Benzodiazepines Scrn Urine Cocaine Screen U Marijuana (THC) Screen Drugs of Abuse Note Plasma/Serum Alcohol < 0.01 (0-0.07) gm% 12/05/16 12/05/16 12/05/16 Range/Units 00:28 01:01 01:01 WBC 10.2 (4.5-11.0) K/mm3 RBC 4.82 (3.65-5.03) M/mm3 Hgb 14.6 (11.8-15.2) gm/dl Hct 43.4 (35.5-45.6) % MCV 90 (84-94) fl MCH 30 (28-32) pg MCHC 34 (32-34) % RDW 14.1 (13.2-15.2) % Plt Count 317 (140-440) K/mm3 Lymph % (Auto) 19.4 (13.4-35.0) % [place] % (Auto) 8.1 H (0.0-7.3) % Eos % (Auto) 1.2 (0.0-4.3) % Baso % (Auto) 1.1 (0.0-1.8) % Lymph # 2.0 (1.2-5.4) K/mm3 [place] # 0.8 (0.0-0.8) K/mm3 Eos # 0.1 (0.0-0.4) K/mm3 Baso # 0.1 (0.0-0.1) K/mm3 Seg Neutrophils % 70.2 H (40.0-70.0) % Seg Neutrophils # 7.2 (1.8-7.7) K/mm3 PT (12.2-14.9) Sec. INR (0.87-1.13) APTT (24.2-36.6) Sec. Sodium (137-145) mmol/L Potassium (3.6-5.0) mmol/L Chloride (98-107) mmol/L Carbon Dioxide (22-30) mmol/L Anion Gap mmol/L BUN (9-20) mg/dL Creatinine (0.8-1.5) mg/dL Estimated GFR ml/min BUN/Creatinine Ratio % Glucose (75-100) mg/dL Calcium (8.4-10.2) mg/dL Urine Color Yellow (Yellow) Urine Turbidity Clear (Clear) Urine pH 5.0 (5.0-7.0) Ur Specific [place] 1.025 (1.003-1.030) Urine Protein 30 mg/dl (Negative) mg/dL Urine Glucose (UA) Neg (Negative) mg/dL Urine Ketones Neg (Negative) mg/dL Urine Blood Neg (Negative) Urine Nitrite Neg (Negative) Urine Bilirubin Neg (Negative) Urine Urobilinogen 2.0 (<2.0) mg/dL Ur Leukocyte Esterase Neg (Negative) Urine WBC (Auto) 2.0 (0.0-6.0) /HPF Urine RBC (Auto) 4.0 (0.0-6.0) /HPF U Epithel Cells (Auto) 1.0 (0-13.0) /HPF Urine Bacteria (Auto) 1+ (Negative) /HPF Hyaline Casts 10 /LPF Urine Mucus 2+ /HPF Urine Opiates Screen Presumptive negative Urine Methadone Screen Presumptive positive Ur Barbiturates Screen Presumptive negative Ur Phencyclidine Scrn Presumptive negative Ur Amphetamines Screen Presumptive negative U Benzodiazepines Scrn Presumptive negative Urine Cocaine Screen Presumptive negative U Marijuana (THC) Screen Presumptive negative Drugs of Abuse Note Disclamer Plasma/Serum Alcohol (0-0.07) gm% - Medical Decision Making Patient does not meet criteria for inpatient treatment. He will be discharged on his current meds and refills as requested. He he was counseled that he needs to follow up with his physician for his Suboxone refill - Differential Diagnosis medication noncompliance, methadone withdrawal, may refill Critical Care Time: No Critical care attestation.: If time is entered above; I have spent that time in minutes in the direct care of this critically ill patient, excluding procedure time. ED Disposition Clinical Impression: Opioid withdrawal, Bipolar disorder, Noncompliance with medication regimen, Medication refill Disposition: DC-01 TO HOME OR SELFCARE Is pt being admited?: No Condition: Stable Instructions: Narcotic Abuse (ED), Bipolar Disorder (ED) Additional Instructions: you Need to follow-up with her physician for refill of your Suboxone. Your other medications have be refilled as requested. Prescriptions: Aspirin [Aspirin BABY CHEW TAB] 81 mg PO QDAY #30 tab.chew Clopidogrel [Plavix] 75 mg PO QDAY #30 tablet Loperamide [Imodium] 2 mg PO Q2HR PRN #20 capsule PRN Reason: Diarrhea Ondansetron [Zofran Odt] 4 mg PO Q8HR PRN #20 tab.rapdis PRN Reason: Nausea And Vomiting Quetiapine Fumarate [Seroquel Xr] 300 mg PO QPM #30 tab.er.24h traZODone [Desyrel] 50 mg PO QHS #30 tab Referrals: PRIMARY CARE, [Primary Care Provider] - [facility] Time of Disposition: 12:09
[2016-12-05] MEDS ORDERED: ZOFRAN ODT PO ONE (09:15)
[2016-12-05] MEDS ORDERED: IMODIUM PO ONE (09:15)
[2016-12-05 12:01] VITALS: BP 160/94
== END 2016-12-05 13:22 | disposition home or self-care (01) ==
LOC: ED 23:36
DX: F11.23 Opioid dependence with withdrawal (principal); F31.9 Bipolar disorder, unspecified; I10 Essential (primary) hypertension; I25.2 Old myocardial infarction; K21.9 Gastro-esophageal reflux disease without esophagitis; J44.9 Chronic obstructive pulmonary disease, unspecified; Z79.82 Long term (current) use of aspirin; Z88.8 Allergy status to other drugs, medicaments and biological substances
CPT/HCPCS: 36415; 80048; 80307; 81001; 85025; 85610; 85730; 99284; G0480; 80320; Q0162

== ENCOUNTER 2017-02-20 10:45 | Emergency (ER) | payer MEDICARE ==
[2017-02-20 12:16] VITALS: BP 155/84
--- NOTE | 2017-02-20 13:19 | Emergency Department Report ---
HPI - General Chief Complaint: Upper Respiratory Infection Time Seen by Provider: 02/20/17 12:32 - HPI HPI: Patient is a 61-year-old male who presents to ED complaining of dry intermittent cough and congestion times one day. Patient states cough began yesterday. Patient states he stays at [facility] and has a lot of people around him has been coughing. Patient describes cough as non-productive, dry condoms and goes. He states nothing makes it worse or better. He denies fevers/chills/nausea/vomiting/abdominal pain/chest pain/shortness of breath. ED Past Medical Hx - Past Medical History Hx Hypertension: Yes Hx Heart Attack/AMI: Yes (3 stents) Hx GERD: Yes Hx Kidney Stones: Yes Hx Psychiatric Treatment: Yes (DEPRESSION/ BIPOLAR, Anxiety, SI, HI,) Hx COPD: Yes Additional medical history: CAD, SVT, Hypothyroid,. ULCERS - Surgical History Hx Coronary Stent: Yes (x3) Hx Open Heart Surgery: Yes (CABG) Additional Surgical History: Peptic ulcer surgery - Social History Smoking Status: Never Smoker Substance Use Type: None - Medications Home Medications: Home Medications Medication Instructions Recorded Confirmed Last Taken Type Quetiapine Fumarate [SEROquel XR] 300 mg PO QHS 06/11/16 10/09/16 06/10/16 History Suboxone 8 mg-2 mg SL Film 8 mg PO DAILY 10/09/16 10/09/16 Unknown History Aspirin [Aspirin BABY CHEW TAB] 81 mg PO QDAY #30 tab.chew 12/05/16 Unknown Rx Clopidogrel [Plavix] 75 mg PO QDAY #30 tablet 12/05/16 Unknown Rx Loperamide [Imodium] 2 mg PO Q2HR PRN #20 capsule 12/05/16 Unknown Rx Ondansetron [Zofran Odt] 4 mg PO Q8HR PRN #20 tab.rapdis 12/05/16 Unknown Rx Quetiapine Fumarate [Seroquel Xr] 300 mg PO QPM #30 tab.er.24h 12/05/16 Unknown Rx traZODone [Desyrel] 50 mg PO QHS #30 tab 12/05/16 Unknown Rx ALBUTEROL Inhaler [ProAir HFA 2 puff IH QID PRN #1 pump 02/20/17 Unknown Rx Inhaler] Benzonatate [Tessalon Perles] 100 mg PO Q8HR #24 capsule 02/20/17 Unknown Rx ED Review of Systems ROS: Stated complaint: FLU LIKE SYMPTOMS Other details as noted in HPI Constitutional: denies: chills, fever Eyes: denies: eye pain, eye discharge, vision change ENT: denies: ear pain, throat pain, dental pain, hearing loss, congestion Respiratory: cough. denies: shortness of breath, wheezing Cardiovascular: denies: chest pain, palpitations Endocrine: no symptoms reported Gastrointestinal: denies: abdominal pain, nausea, vomiting, diarrhea Genitourinary: denies: urgency, dysuria, frequency, hematuria Musculoskeletal: denies: back pain, joint swelling, arthralgia Skin: denies: rash, lesions Neurological: denies: headache, weakness, paresthesias Psychiatric: denies: anxiety, depression Hematological/Lymphatic: denies: easy bleeding, easy bruising Physical Exam - Physical Exam Vital Signs: Vital Signs 02/20/17 12:14 Temperature 97.8 F Pulse Rate 97 H Respiratory 16 Rate Blood Pressure 155/84 O2 Sat by Pulse 98 Oximetry Physical Exam: GENERAL: Alert and oriented x3, no apparent distress, Normal Gait, atraumatic. HEAD: Head is normocephalic and a-traumatic. EYES: Extra ocular muscles are intact. Pupils are equal, round, and reactive to light and accommodation. EARS: symetrical, atraumatic, non tender, ear canal clear and moderate cerumen, tympanic membrance non inflamed. gross auditory nml bilaterally. NOSE: Nose symetrical, Nontender,Nares appeared normal. MOUTH:Mouth is well hydrated and without lesions. Tonsils nonerythematous or swollen, Uvula midline, Tongue not elevated. Mucous membranes are moist. Posterior pharynx clear, no exudate or lesions. Patent airways. NECK: Supple. Non edematous, No lymphadenopathy or thyromegaly. No C-spine tenderness LUNGS: Symetrical with respiration, No wheezing, no rales or crackles, CTAB. HEART: S1, S2 present, regular rate and rhythm without murmur, no rubs, no gallops. Non tender to palpation EXTREMITIES/MUSCULOSKELETAL: No cyanosis, clubbing, rash, lesions or edema. Full ROM bilaterally NEUROLOGIC: The patient is cooperative with no focal neurologic deficits. SKIN: Warm and dry, No lesions, No ulceration or induration present. ED Course Vital Signs 02/20/17 12:14 Temperature 97.8 F Pulse Rate 97 H Respiratory 16 Rate Blood Pressure 155/84 O2 Sat by Pulse 98 Oximetry ED Medical Decision Making - Radiology Data Radiology results: report reviewed, image reviewed Fluoro Time In Minutes: CHEST TWO VIEWS: 02/20/17 10:45:00 CLINICAL: Chest congestion. COMPARISON: 06/28/16 FINDINGS: Normal heart and pulmonary vasculature.The lungs are mildly hyperexpanded and hyperlucent. No airspace disease or pleural effusion. Median sternotomy wires.The bones are otherwise normal. Normal soft tissues. IMPRESSION: COPD no acute change. Transcribed By: REF Dictated By: BENEDICTO WYATT MD Electronically Authenticated By: BENEDICTO WYATT MD Signed Date/Time: 02/20/17 1341 - Medical Decision Making 61-year-old male presents with bronchitis ED course: Patient received Robitussin in ED Chest x-ray ordered. Explained chest x-ray shows above findings I discussed findings with the patient. Vital signs are normal, patient is in no acute or respiratory distress. Discussed with the patient follow-up with primary care physician within 3-5 days. I discussed with the patient is symptoms worsen or new symptoms develop to return to ED Critical care attestation.: If time is entered above; I have spent that time in minutes in the direct care of this critically ill patient, excluding procedure time. ED Disposition Clinical Impression: Bronchitis, COPD (chronic obstructive pulmonary disease) with acute bronchitis Disposition: - TO HOME OR SELFCARE Is pt being admited?: No Does the pt Need Aspirin: No Condition: Stable Instructions: Acute Bronchitis (ED), Chronic Obstructive Pulmonary Disease (ED) , Chronic Bronchitis (ED) Additional Instructions: Make sure to follow up with the primary care physician as discussed. Take all your medications as you've been prescribed. If you have any worsening symptoms or develop new symptoms please return to ED immediately. Prescriptions: ALBUTEROL Inhaler [ProAir HFA Inhaler] 2 puff IH QID PRN #1 pump PRN Reason: Shortness Of Breath Benzonatate [Tessalon Perles] 100 mg PO Q8HR #24 capsule Referrals: PRIMARY CARE, [Primary Care Provider] - 3-5 Days [facility] [Outside] - 3-[address] [facility] [Outside] - 3-5 Days Forms: Work/School Release Form(ED) Time of Disposition: 14:07
[2017-02-20] MEDS ORDERED: ROBITUSSIN PO ONE (13:27)
--- NOTE | 2017-02-20 13:50 | XRay Report ---
CHEST TWO VIEWS: 02/20/17 10:45:00 CLINICAL: Chest congestion. COMPARISON: 06/28/16 FINDINGS: Normal heart and pulmonary vasculature.The lungs are mildly hyperexpanded and hyperlucent. No airspace disease or pleural effusion. Median sternotomy wires.The bones are otherwise normal. Normal soft tissues. IMPRESSION: COPD no acute change.
== END 2017-02-20 14:31 | disposition home or self-care (01) ==
LOC: ED 10:45
DX: J20.9 Acute bronchitis, unspecified (principal); J44.0 Chronic obstructive pulmonary disease with (acute) lower respiratory infection; I10 Essential (primary) hypertension; I25.2 Old myocardial infarction; K21.9 Gastro-esophageal reflux disease without esophagitis; E03.9 Hypothyroidism, unspecified; Z79.82 Long term (current) use of aspirin; Z98.890 Other specified postprocedural states
CPT/HCPCS: 71046; 87400; 99283

== ENCOUNTER 2017-04-14 15:44 | Emergency (ER) | payer MEDICARE ==
[2017-04-14 15:54] VITALS: BP 189/100
--- NOTE | 2017-04-14 19:18 | Emergency Department Report ---
Chief Complaint: Psych Stated Complaint: PSYCHE - HPI History of Present Illness: 61-year-old male presents to the emergency department, sent in by his psychiatrist, for a medical clearance so that he can go to [facility]. His psychiatrist is Dr. Miles Dietz who allegedly works for [employer] [facility] with [facility] and told him that he would be accepted there upon medical clearance. The patient has a recurring issue in which he has vivid dreams regarding his son's previous . He says that he "sees him in hell". He says that these dreams sometimes make him want to hurt himself but currently denies any suicidal or homicidal ideations. - Exam Vital Signs: Vital Signs 04/14/17 15:48 Temperature 97.9 F Pulse Rate 138 H Respiratory 18 Rate Blood Pressure 189/100 O2 Sat by Pulse 99 Oximetry MSE screening note: Focused history and physical exam performed. Due to findings the following was ordered: I ordered a CBC, BMP, blood alcohol level, urine drug screen and urinalysis. I ordered a mental health assessment to look into the patient's acceptance into [facility]. ED Disposition for MSE Condition: Stable
== END 2017-04-14 19:50 | disposition left against medical advice (07) ==
LOC: ED 15:44
DX: F29 Unspecified psychosis not due to a substance or known physiological condition (principal); Z53.21 Procedure and treatment not carried out due to patient leaving prior to being seen by health care provider

== ENCOUNTER 2017-05-20 01:51 | Emergency (ER) | payer MEDICARE ==
[2017-05-20 04:33] VITALS: BP 167/92
[2017-05-20 04:56] LABS: Basophils # (Auto) 0.1 K/mm3 (0.0-0.1); Basophils % (Auto) 2.6 % (0.0-1.8); Eosinophils # (Auto) 0.2 K/mm3 (0.0-0.4); Eosinophils % (Auto) 3.1 % (0.0-4.3); Hematocrit 39.2 % (35.5-45.6); Hemoglobin 13.4 gm/dl (11.8-15.2); Lymphocytes % (Auto) 37.8 % (13.4-35.0); Mean Corpuscular HGB Conc 34 % (32-34); Mean Corpuscular Hemoglobin 31 pg (28-32); Mean Corpuscular Volume 91 fl (84-94); Monocytes # (Auto) 0.5 K/mm3 (0.0-0.8); Monocytes % (Auto) 10.4 % (0.0-7.3); Platelet Count 234 K/mm3 (140-440); Red Blood Count 4.32 M/mm3 (3.65-5.03); Red Cell Distribution Width 14.5 % (13.2-15.2)
[2017-05-20 05:14] LABS: Alanine Aminotransferase 11 units/L (7-56); Albumin 4.1 g/dL (3.9-5); BUN/Creatinine Ratio 23; Blood Urea Nitrogen 21 mg/dL (9-20); Calcium 9.3 mg/dL (8.4-10.2); Hemolysis Index 27; Lipase 11 units/L (13-60)
[2017-05-20 06:04] LABS: Bilirubin,Urine NEG (Negative); Blood,Urine NEG (Negative); Color,Urine Yellow (Yellow); Mucus,Urine FEW /HPF; Protein,Urine <15 mg/dL mg/dL (Negative); Urobilinogen,Urine < 2.0 mg/dL (<2.0)
== END 2017-05-20 08:25 | disposition left against medical advice (07) ==
LOC: ED 01:51
DX: R10.9 Unspecified abdominal pain (principal); Z53.21 Procedure and treatment not carried out due to patient leaving prior to being seen by health care provider
CPT/HCPCS: 36415; 80053; 81001; 83690; 85025